=== PATIENT | male | born 1970 | race Caucasian/White ===

== ENCOUNTER 2019-10-04 18:54 | Observation (INO) | payer OTHER ==
[~2019-10-04 18:54] MED LIST: Iopamidol-370 76% 500 ML 1 ML ONE
--- NOTE | 2019-10-04 19:20 | RAD ---
Chest one view HISTORY: Chest pain. FINDINGS: Cardiac silhouette and pulmonary vasculature are unremarkable. Mediastinum is midline. No c onfluent airspace consolidation or evidence of pneumothorax. IMPRESSION: No active cardiopulmonary abnormalities are demonstrated.
[2019-10-04 19:33] LABS: #Basophils 0.1 thou/uL (0.0-0.2); #Eosinphils 0.3 thou/uL (0.0-0.7); #Lymphocytes 2.1 thou/uL (1.20-3.40); #Monocytes 0.4 thou/uL (0.11-0.59); %Basophils 1.9 % (0.0-1.0); %Eosinophils 4.2 % (0.0-10.0); %Lymphocytes 35.6 % (21.0-51.0); %Monocytes 7.2 % (0.0-10.0); %Neutrophils 51.1 % (42.0-75.0); Hemoglobin 15.6 g/dL (14.0-18.0); Mean Corpuscular HGB CONC 34.6 g/dL (32.0-36.0); Mean Corpuscular Hemoglobin 28.7 pg (27.0-31.0); Mean Corpuscular Volume 82.9 fL (78.0-98.0); Mean Platelet Volume 6.2 fL (7.4-10.4); Platelet Count 260 thou/uL (130-400); RBC Distribution Width 12.4 % (11.5-14.5); Red Blood Cell (RBC) Count 5.45 mill/uL (4.70-6.10); White Blood Cell (WBC) Count 5.9 thou/uL (4.8-10.8)
[2019-10-04 19:49] LABS: ALT (SGPT) 42 U/L (8-55); AST (SGOT) 32 U/L (5-34); Albumin 4.6 g/dL (3.5-5.0); Alkaline Phosphatase 86 U/L (40-110); Anion Gap 9 mmol/L (10-20); BUN (Urea Nitrogen) 10 mg/dL (8.9-20.6); Bilirubin, Total 0.3 mg/dL (0.2-1.2); CK (CPK) 133 U/L (30-200); Calc. Creatinine Clearance 0 mL/min (70-130); Carbon Dioxide 34 mmol/L (22-29); Chloride 103 mmol/L (98-107); Estimated GFR-MDRD 86; Globulin 3.2 g/dL (2.4-3.5); Glucose 116 mg/dL (70-105); Lipase 320 U/L (8-78); Protein, Total 7.8 g/dL (6.0-8.3); Sodium 142 mmol/L (136-145)
[2019-10-04] MEDS ORDERED: Nitroglycerin 2% Ointment 1 INCH/1 GM Packet ONE (19:51)
[2019-10-04] MEDS ORDERED: Aspirin Chewable 81 MG TAB ONE (19:51)
--- NOTE | 2019-10-04 20:37 | CT ---
CT arteriogram chest with IV contrast and 3-D imaging HISTORY: Chest pain. FINDINGS: Good contrast opacification the pulmonary arteries and thoracic aorta with bovine origin of the great vessels at the aortic arch. Within the central portion of the right lower lobe, a noncalcified well marginated 0.8 cm nodule is present. Calcified granuloma at the left posterior medi al lung bases. No pleural fluid or pneumothorax. No mediastinal adenopathy. IMPRESSION: No CT evidence of pulmonary embolus. Noncalcified 8 mm right lower lobe nodule. Please consider follow-up CT chest in 6 months to evaluate for growth.
[2019-10-04] MEDS ORDERED: Acetaminophen 500 MG TAB ONE (22:06)
[2019-10-04 22:46] LABS: Troponin I Less than 0.010 ng/mL (< 0.028)
[2019-10-04] MEDS ORDERED: Acetaminophen 325 MG TAB PO PRN (23:23)
[2019-10-04] MEDS ORDERED: Ondansetron PF 4 MG/2 ML Vial IVP PRN (23:23)
[2019-10-04] MEDS ORDERED: Acetaminophen 650 MG Suppository PR PRN (23:23)
[2019-10-04] MEDS ORDERED: Ondansetron ODT 4 MG TAB PO PRN (23:23)
[2019-10-04] MEDS ORDERED: Sodium Chloride 0.9% 1,000 ML IV SCH (23:30)
[2019-10-05] MEDS: Sodium Chloride 0.9% 1,000 ML IV SCH ×2 (00:54→09:48)
--- NOTE | 2019-10-05 01:04 | HP ---
HISTORY OF PRESENT ILLNESS: Mr. Abel is a pleasant 49-year-old gentleman with no past medical history, who presents to the emergency department with complaints of chest pain and elevated blood pressure. The patient states he was noted to have an elevated blood pressure while at a dental appointment yesterday. He bought a blood pressure cuff and has been checking his blood pressure since and has noted that his blood pressure was in the 170s yesterday evening. This morning, it was normal in the one teens to 120s. He did begin to feel tired with some discomfort in both eyes, which he thought was attributed to being tired, but once he checked his blood pressure, he noted it was elevated in the 170s. The patient states he went to a service and was in the middle of prayer, when he began to feel tingling sensation in his right arm. He states his daughter was holding onto his arm and this happened at about 6:00 p.m. He let go of his daughter to see if it was due to her squeezing on his arm too tightly. He then began to feel generally unwell with an odd sensation in his throat, which he does not describe as pain and then began to feel a localized pressure in the center of his chest, which was substernal and 2/10 in severity. The patient states he had a mild headache and informed his . He immediately left with his family and sought medical attention here at the ER. The patient states his discomfort gradually increased to 4/10 in severity. Currently, it is 2/10 and he has been treated with Tylenol for headache, given 324 mg of aspirin, and has had 1 inch of Nitro-Bid placed. He denies any associated diaphoresis or shortness of breath. Denies any cough or hemoptysis. Has not had any abdominal pain or cramping. No nausea or vomiting. Has not had any lower leg swelling or calf tenderness or edema. The patient states he has never experienced anything like this before. In the emergency department, he underwent laboratory studies, which showed a normal full blood count. He had a sodium of 142, potassium 4.0, BUN 10, creatinine 0.93, and GFR 86. LFTs are unremarkable; however, lipase was elevated at 320. BNP was negative. Troponin negative x2. His D-dimer was elevated at 1.17, prompting a CT angiogram of chest. CT angiogram was negative for PE, however, did show a right lower lung pulmonary noncalcified nodule measuring 8 mm. Recommendations were made for followup CT chest in six months to assess for further growth. Chest x-ray was done and showed no evidence of intrathoracic abnormalities. EKG showed a normal sinus rhythm with a heart rate of 81 and no ectopics. No ST changes or T-wave abnormalities. At this present time, the patient reports having mild discomfort, which is 2/10 in severity and a mild headache, which he states is tolerable. No vision changes. PAST MEDICAL HISTORY: None. PAST SURGICAL HISTORY: None. SOCIAL HISTORY: The patient reports drinking socially about once a month. Denies any history of tobacco use or illicit drug use. FAMILY HISTORY: Noncontributory. PHYSICAL EXAMINATION: GENERAL: The patient appears well developed, well nourished, is in no acute distress. VITAL SIGNS: Temperature 98, pulse 73, blood pressure 175/80, respirations 20, and O2 saturation 97% on room air. HEENT: Normocephalic and atraumatic. Pupils are equal, round, and reactive to light. Sclerae without icterus. Oropharynx is clear. NECK: Supple without lymphadenopathy. LUNGS: Clear to auscultation bilaterally without wheezes, rales, or rhonchi. CARDIAC: Regular rate and rhythm without audible murmurs, rubs, or gallops. Pain is not significantly reproducible on exam. ABDOMEN: Soft, nontender, nondistended. Normoactive bowel sounds present. EXTREMITIES: No lower leg swelling or edema. NEUROLOGIC: Alert and oriented x3. SKIN: Warm and dry. INVESTIGATIONS: As mentioned above in HPI. IMPRESSION AND PLAN: Mr. Abel is a 49-year-old gentleman with no known past medical history, who was noted to have elevated blood pressure yesterday and developed chest discomfort early this evening. He has been referred for management of the following; 1. Acute coronary syndrome rule out. The patient with substernal discomfort. Troponin negative x2. D-dimer elevated, however, no evidence of pulmonary embolism on CT angiogram. LFTs are normal; however, lipase is elevated at 320. We will obtain a right upper quadrant ultrasound. We will discontinue diet ordered in the ED and place him on a clear liquid diet until midnight, at which point, we will keep him n.p.o. The patient has never undergone cardiac investigations; therefore, we will go ahead and order a stress test for the morning. He does have a third troponin pending. Chest x-ray unremarkable. We will add magnesium and TSH as well as a fasting morning lipid panel. 2. Elevated lipase. Potentially the cause of his pain. We will repeat LFTs and lipase with morning labs. Awaiting results of right upper quadrant ultrasound. 3. Elevated blood pressure. The patient without any history of hypertension. We will monitor blood pressure. Currently, it is well controlled since being on Nitro-Bid. 4. Gastrointestinal prophylaxis. Famotidine 20 mg IV b.i.d. 5. Deep venous thrombosis prophylaxis. Mechanical SCDs. 6. Incidental finding of lung nodule. The patient will likely require repeat followup imaging to assess for further enlargement, per radiologist, recommendation was made for CT chest in six months. 7. Code status, full. His surrogate decision maker is his , Giovana Abel. The patient's case was discussed with Dr. Bill, who agrees with plan of care as described above. Job ID: [id number]
[2019-10-05 01:52] LABS: Troponin I Less than 0.010 ng/mL (< 0.028)
[2019-10-05 03:40] LABS: #Basophils 0.1 thou/uL (0.0-0.2); #Eosinphils 0.4 thou/uL (0.0-0.7); #Lymphocytes 2.9 thou/uL (1.20-3.40); #Monocytes 0.7 thou/uL (0.11-0.59); #Neutrophils 3.6 thou/uL (1.40-6.50); %Basophils 1.3 % (0.0-1.0); %Lymphocytes 37.6 % (21.0-51.0); %Monocytes 9.2 % (0.0-10.0); Mean Corpuscular HGB CONC 32.6 g/dL (32.0-36.0); Mean Corpuscular Hemoglobin 27.2 pg (27.0-31.0); Mean Corpuscular Volume 83.4 fL (78.0-98.0); Mean Platelet Volume 6.5 fL (7.4-10.4); Platelet Count 226 thou/uL (130-400); RBC Distribution Width 12.5 % (11.5-14.5); Red Blood Cell (RBC) Count 4.79 mill/uL (4.70-6.10); White Blood Cell (WBC) Count 7.6 thou/uL (4.8-10.8)
[2019-10-05 03:59] LABS: ALT (SGPT) 34 U/L (8-55); AST (SGOT) 24 U/L (5-34); Albumin 3.7 g/dL (3.5-5.0); Alkaline Phosphatase 68 U/L (40-110); Bilirubin, Direct 0.1 mg/dL (0.1-0.3); Bilirubin, Total 0.3 mg/dL (0.2-1.2); Protein, Total 6.2 g/dL (6.0-8.3)
[2019-10-05 04:01] LABS: Anion Gap 7 mmol/L (10-20); BUN (Urea Nitrogen) 10 mg/dL (8.9-20.6); Calc. Creatinine Clearance 0 mL/min (70-130); Calcium 9.1 mg/dL (7.8-10.44); Carbon Dioxide 33 mmol/L (22-29); Chloride 104 mmol/L (98-107); Cholesterol 203 mg/dl (< 200 Desired); Estimated GFR-MDRD 79; Glucose 94 mg/dL (70-105); HDL Cholesterol 34 mg/dL (>60 Neg Risk); LDL Cholesterol, Calculated 140 mg/dL; Lipase 54 U/L (8-78); Sodium 140 mmol/L (136-145); Triglycerides 146 mg/dL (Less than 150)
[2019-10-05 06:31] VITALS: BMI 26.7
--- NOTE | 2019-10-05 08:06 | ULT ---
PRELIMINARY REPORT/[facility]/EMERGENCY AFTER HOURS PROCEDURE: PROCEDURE INFORMATION: Exam: US Abdomen Limited, Right Upper Quadrant Exam date and time: 10/04/2019 11:47 PM Clinical history: 49 years old, male; Elevated lipase; chest pain, HTN TECHNIQUE: Imaging protocol: Real-time ultrasound of the abdomen with image documentation. Examination was focus ed on the right upper quadrant. COMPARISON: No relevant prior studies available. FINDINGS: The liver exhibits homogeneous echogenicity. Contracted gallbladder without cholelithiasis, gallbladder wall thickening, or pericholecystic fluid. No sonographic Clark's sign. The caliber of the common bile duct is normal measuring 2.9 mm. No intrahepatic biliary dilatation. Normal right kidney without hydronephrosis. The majority of the pancreas is never well visualized due to overlying bowel gas. No ascites. IMPRESSION: 1. The majority of the pancreas is never well visualized due to overlying bowel gas. 2. No sonographic evidence to suggest cholecystitis. 3. No biliary tract dilatation. Thank you for allowing us to participate in the care of your patient. Dictated and Authenticated by: Frankie Smith MD 10/05/2019 12:33 AM Central Time ([place] & [place]) FINAL REPORT RIGHT UPPER QUADRANT ULTRASOUND: DATE: 10/04/19 IMPRESSION: I agree with the preliminary report given by Sheri. POS: MISBAH
[2019-10-05] MEDS ORDERED: Famotidine/PF 20 mg/2ml Vial SLOW IVP SCH (09:00)
[2019-10-05] MEDS ORDERED: Aspirin 325 MG TAB PO SCH (09:00)
--- NOTE | 2019-10-05 13:49 | NM ---
Nuclear medicine Cardiac myocardial perfusion SPECT Ejection fraction study Wall motion cine: DATE:10/05/2019 7:00 AM INDICATION: Chest pain TECHNIQUE: Number of days:2 Rest Study: Technetium 99m-sestamibi (Cardiolite) dose:9.60 mCi Stress study: Technetium 99m-sestamibi (Cardiolite) dose:32.30 mCi FINDINGS: Cardiac (myocardial perfusion) SPECT There are no reversible myocardial perfusion defects. Ejection fraction study Left ventricular EF = 69% Wall motion cine Normal wall motion and thickening. IMPRESSION: No evidence of reversible myocardial ischemia.
[2019-10-05 13:50] VITALS: BP 150/85; TEMP 98.5
--- NOTE | 2019-10-06 18:46 | DIS ---
DATE OF ADMISSION: 10/04/2019 DATE OF DISCHARGE: 10/05/2019 DISCHARGE DIAGNOSES: 1. Chest pain. 2. Hypertension, possible new diagnosis. 3. Elevated lipase. 4. Incidental lung nodule finding. HOSPITAL COURSE: The patient is a 49-year-old male who initially presented to the hospital on 10/04, with complaints of chest pain and elevated blood pressure. The patient stated that for the past 2 to 3 days, he has been noticing his blood pressure to be mildly elevated. His blood pressure according to him is very labile, it will be normal in the 110s and go up to the 170s. The patient states that he has not had any recent stressful events. He does feel that he has had a stressful year earlier, but now he feels much more relaxed. However, he also states that towards the end of the day, sometimes he feels dry and sometimes he has noticed a little bit of a headache. The patient while was admitted, had a blood pressure in the 170s. He also had underwent CTA which was negative; however, it did mention that he has an 8 mm right lower lobe nodule and I have educated the patient to follow up with his primary to get a repeat CT scan in about 6 months. He does not have a history of smoking. He also had an abdominal ultrasound, which was essentially normal. It did not mention any biliary duct dilation. The patient also had a stress test and his EF on the stress test was 69% with normal wall motion and thickening. No evidence of reversible ischemia was noted. This was transmitted to the patient and the patient's . He understood; however, his concern was his blood pressure has been a little bit on the higher side. I did start him on low-dose Norvasc and I did tell him that he can take an additional dose if his blood pressure increases. I also told him not to take his blood pressure 9 times a day, just to take it 3 times, which can also exacerbate the elevating of his blood pressure, causing most likely from the anxiety. The patient understood this. Also on the lab work, he was noted to have a little bit of elevated cholesterol. I have asked him to control that with diet and he is agreeable to it and he does not want any additional medications. I also educated him about a low-salt diet and he understands. The patient has been eating a lot of frozen meals and canned foods which could have increased salt content. The patient has an appointment with his PCP on Wednesday. DISCHARGE MEDICATIONS: I have started him on Norvasc 5 mg daily, I have told him to take an additional 5 mg as needed if his systolic is greater than 140 or 150 and his diastolic is greater than 90. He is on multivitamin, tizanidine, and also he does take some Mucinex, however, I did educate him and he stated that the Mucinex is the regular Mucinex that does not cause elevated blood pressure. His thyroid was normal at 1.94. Troponins x3 were negative. PHYSICAL EXAMINATION: VITAL SIGNS: At this time, temperature 98.5, pulse 96, respirations 16, 96% on room air. His blood pressure was 150/85. GENERAL: He is awake, alert, and oriented x3. Does not appear in any distress. CV: S1 and S2 present. No murmurs, rubs, or gallops. ABDOMEN: Soft and nontender. Bowel sounds are present x2. Also, his blood pressure has been ranging from however, he did have a nitroglycerin patch on for the chest pain. He has no more chest pain and again I have asked him if his symptoms worsen or something changes that he needs to come into the hospital for further evaluation. Job ID: [id number]
== END 2019-10-05 16:00 | disposition home or self-care (01) ==
LOC: ERS 18:54 → ERHOLD 22:19 → 2SE 10-05 06:18
PROVIDERS: ADMIT Family Medicine; ATTEND Family Medicine
DX: R07.2 Precordial pain (principal); I10 Essential (primary) hypertension; R91.1 Solitary pulmonary nodule; R74.8 Abnormal levels of other serum enzymes
CPT/HCPCS: 36415; 71045; 71275; 76705; 78452; 80048; 80053; 80061; 80076; 82550; 83690; 83735; 83880; 84443; 84484; 85025; 85379; 93005; 93017; 96360; 96361; 96374; A9500; G0378; Q9967; S0028